=== PATIENT | female | born 1960 | race Hispanic/Latino ===

== ENCOUNTER 2018-03-25 10:11 | Emergency (ER) | payer SELFPAY ==
--- NOTE | 2018-03-25 11:58 | Emergency Department Report ---
ED CPR HPI - General Chief Complaint: Cardiac Arrest/CPR Stated Complaint: CARDIAC Source: EMS Mode of arrival: Stretcher Limitations: Other - History of Present Illness Initial Comments: 57-year-old female resident at [facility] in [place]. I do have limited history on this patient. I spoke to the who was beginning the process of grieving after I counseled him. He could tell me that he actually hasn't seen his at [facility] this week because she was not doing well the day that he came to visit her which I believe was on Tuesday. He states that the patient was admitted to [facility] about 2 weeks ago for one week. Apparently she had overdosed. She has been in [facility] for approximately one week. Paramedics informed me that the patient was found in asystole on nursing rounds this morning. Her last known well time is unknown. She was resuscitated with several rounds of ACLS medications. She was also found to be hypoglycemic with a blood sugar of 30. She did not respond to D50. She had no return of spontaneous circulation nor electrical activity. She remained in asystole. She arrived in asystole after approximately 30 minutes of unsuccessful resuscitation. Complaint: found unresponsive Initial Findings in the Field: systole ROSC in the Field: No Associated Injuries: No Treatments Prior to Arrival: intubation ED Review of Systems ROS: Stated complaint: CARDIAC Other details as noted in HPI Comment: Unobtainable due to pts medical conditions ED Past Medical Hx - Past Medical History Previous Medical History?: Yes Hx of Cancer: Yes (colon) Hx Psychiatric Treatment: Yes (psychosis) Additional medical history: adhd, fibromyalgia - Social History Smoking Status: Unknown if ever smoked ED Physical Exam - General Limitations: Other - Head Head exam: Present: atraumatic - ENT ENT exam: Present: other (endotracheal intubation) - Neck Neck exam: Present: normal inspection - Respiratory Respiratory exam: Present: other (breath sounds are present with Ambu bag assist bilaterally) - Cardiovascular Cardiovascular Exam: Present: other (no heart sounds) - GI/Abdominal GI/Abdominal exam: Present: soft - Extremities Exam Extremities exam: Present: other (no gross deformity) - Skin Skin exam: Present: pallor ED Course - Reevaluation(s) Reevaluation #1: The patient had exceeded the time required for warranted continued resuscitation. She was declared DOA. The was counseled. 03/25/18 13:00 Critical care attestation.: If time is entered above; I have spent that time in minutes in the direct care of this critically ill patient, excluding procedure time. ED Disposition Clinical Impression: Cardiac arrest Disposition: DC-20 Is pt being admited?: No Does the pt Need Aspirin: No Condition: Stable Referrals: PRIMARY CARE, [Primary Care Provider] - 3-5 Days Time of Disposition: 11:01
== END 2018-03-25 12:02 ==
LOC: ED 10:11
DX: I46.9 Cardiac arrest, cause unspecified (principal); F90.9 Attention-deficit hyperactivity disorder, unspecified type; F23 Brief psychotic disorder; Z85.038 Personal history of other malignant neoplasm of large intestine
CPT/HCPCS: 92950